=== PATIENT | female | born 1970 | race Caucasian/White ===

== ENCOUNTER 2025-06-24 10:00 | Outpatient (RCR) | payer OTHER, SELFPAY | END 2025-06-30 13:38 | disposition home or self-care (01) | LOC: HO.PTS 10:00 | PROVIDERS: PCP Physician Assistant; Visit Provider Student in an Organized Health Care Education/Training Program | DX: S72.91XD Unspecified fracture of right femur, subsequent encounter for closed fracture with routine healing (principal) | CPT/HCPCS: 97110; 97116; 97140; 97162; 97164; 97530; 97535 ==